=== PATIENT | male | born 1955 | race Caucasian/White ===

== ENCOUNTER → 2022-01-29 | Outpatient (REF) | payer MEDICARE, OTHER ==
[2022-01-29 11:11] LABS: BASO % 0.7 % (0.0-1.0); EOS # 0.1 10^3/uL (0.0-0.5); EOS % 2.5 % (0.0-3.0); HEMATOCRIT 47.2 % (42.0-52.0); HEMOGLOBIN 15.4 g/dl (13.5-17.5); LYMPH # 1.4 10^3/uL (1.5-5.0); LYMPH % 32.6 % (24.0-44.0); MEAN CORPUSCULAR HEMOGLOBIN 29.8 pg (27.0-33.0); MEAN CORPUSCULAR HGB CONC 32.6 g/dl (32.0-36.5); MEAN CORPUSCULAR VOLUME 91.5 fl (80.0-96.0); MONO # 0.7 10^3/uL (0.0-0.8); MONO % 15.2 % (2.0-8.0); NEUTROPHILS # 2.2 10^3/uL (1.5-8.5); NEUTROPHILS % 48.8 % (36.0-66.0); PLATELET COUNT, AUTOMATED 187 10^3/uL (150-450); RED BLOOD COUNT 5.16 10^6/uL (4.30-6.10); WHITE BLOOD COUNT 4.4 10^3/uL (4.0-10.0)
[2022-01-29 11:42] LABS: ALBUMIN 3.7 GM/DL (3.2-5.2); ALT/SGPT 91 U/L (12-78); BILIRUBIN,TOTAL 0.4 MG/DL (0.2-1.0); BLOOD UREA NITROGEN 20 MG/DL (7-18); CARBON DIOXIDE LEVEL 30 MEQ/L (21-32); CHLORIDE LEVEL 106 MEQ/L (98-107); CREATININE FOR GFR 1.04 MG/DL (0.70-1.30); GLOMERULAR FILTRATION RATE > 60.0 (>49); GLUCOSE, FASTING 101 MG/DL (70-100); POTASSIUM SERUM 4.6 MEQ/L (3.5-5.1); SODIUM LEVEL 140 MEQ/L (136-145); TOTAL PROTEIN 7.2 GM/DL (6.4-8.2)
[2022-01-29 12:18] LABS: TESTOSTERONE 525 NG/DL (241-827)
[2022-01-29 12:19] LABS: ESTRADIOL 43.8 PG/ML (<39.8)
[2022-01-31 14:07] LABS: PSA TOTAL 0.9 ng/mL (0.0-4.0); SEX HORMONE BINDING GLOBULIN 30.2 nmol/L (19.3-76.4)
== END ==
LOC: M LABWUC 09:51
DX: N40.1 Benign prostatic hyperplasia with lower urinary tract symptoms (principal); E29.1 Testicular hypofunction

== ENCOUNTER → 2024-11-01 | Outpatient (CLI) | payer MEDICARE, OTHER ==
[~2024-11-01] MED LIST: ALLO300T2; HYDR-3363; LEVOTAB10 PO; NAPR-751 PO; PRIL20TA2 PO; PROHANCE 279.3MG/ML 15ML VIAL ONE; PROHANCE 279.3MG/ML 5ML VIAL ONE
== END ==
LOC: M PLAIMG 11:15
PROVIDERS: ATTEND Urology
DX: C64.9 Malignant neoplasm of unspecified kidney, except renal pelvis (principal)
CPT/HCPCS: 74183; A9576